=== PATIENT | female | born 1975 | race Caucasian/White ===

== ENCOUNTER 2017-12-22 00:24 | Inpatient (IN) | payer OTHER ==
[~2017-12-22] VITALS: Ht 170.2 cm; Wt 88.5 kg
[2017-12-22] VITALS (11 sets, daily range): BP systolic 108–143; BP diastolic 60–87
[~2017-12-22 00:24] MED LIST: IBUPROFEN800 MG PO; MOTRIN 600 MG600 MG PO; PERCOCET 325 MG1 TA2 PO; PERCOCET 5-3251 EACH PO; PRENATAL1 TA2 PO; TRAMADOL50 MG PO; ZOFRAN4 M1 SL
[2017-12-22 01:16] LABS: ABSOLUTE BASOPHIL COUNT 0.1 /CUMM (0.0-0.2); ABSOLUTE EOSINOPHIL COUNT 0.2 /CUMM (0.0-0.7); ABSOLUTE LYMPH COUNT 4.1 /CUMM (1.2-3.4); ABSOLUTE MONOCYTE COUNT 0.5 /CUMM (0.10-0.60); BASOPHIL % 0.7 % (0.0-2.0); EOSINOPHIL % 2.4 % (0-5); HEMATOCRIT 40.2 % (37-47); MEAN CORPUSCULAR HGB 31.2 PG (27.0-31.0); MEAN CORPUSCULAR HGB CONC 33.9 G/DL (33.0-37.0); MEAN CORPUSCULAR VOLUME 92.1 FL (81.0-99.0); MEAN PLATELET VOLUME 8.2 FL (7.4-10.4); PLATELET COUNT 272 /CUMM (130-400); RED BLOOD CELL CT 4.37 /CUMM (4.20-5.40); WHITE BLOOD CELL COUNT 9.9 /CUMM (4.8-10.8)
--- NOTE | 2017-12-22 01:20 | ED GENERAL ADULT ---
History of Present Illness General Chief Complaint: ETOH/Drug Related Complaint Stated Complaint: DETOX Source: patient Exam Limitations: no limitations Vital Signs & Intake/Output Vital Signs & Intake/Output Vital Signs Date Time Temp Pulse Resp B/P B/P Pulse O2 O2 Flow FiO2 Mean Ox Delivery Rate 12/22 1025 98.5 66 20 124/66 08/06 1024 98.5 66 20 124/66 99 Room Air 08/06 0830 98.6 65 20 122/60 08/06 0830 98.6 65 20 122/60 100 Room Air 08/06 0628 97.0 60 18 110/60 97 Room Air /06 0552 97.0 60 18 110/60 08/06 0351 96.9 90 18 133/76 08/06 0340 96.9 90 18 133/76 97 Room Air / 0128 96.9 73 18 143/86 08/06 0041 96.9 73 18 143/86 98 Room Air Allergies Coded Allergies: shrimp (Severe, ANAPHYLAXIS 12/26/15) amoxicillin (Intermediate, RASH 12/26/15) morphine (Intermediate, RASH 12/26/15) Reconcile Medications Ibuprofen (Motrin 600 MG Tab) 600 MG TAB 1 TAB PO Q6P PRN PAIN Ondansetron (Zofran Odt) 4 MG ODT 1 ODT SL Q6P PRN NAUSEA Oxycodone HCl/Acetaminophen (Percocet 5-325 MG Tablet) 1 EACH TABLET 1-2 TAB PO Q4-6 PRN PAIN Triage Note: PT TO ED REQUESTING ETOH DETOX. STATES "I'VE BEEN DRINKING WAY TOO MUCH RECENTLY" STATES HAS BEEN DRINKING HEAVILY FOR THE LAST YEAR. DRINKS A COUPLE OF MIXED DRINKS DAILY. 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 DENIES DRUGS. DENIES SI/HI. ADMITS TO BEING DEPRESSED. HAS TRIED TO STOP DRINKING ON HER OWN MULTIPLE TIMES, HAS NOT BEEN SUCCESSFUL. "A LOT GOING ON" Triage Nurses Notes Reviewed? yes : No Patient currently breastfeeds: No HPI: Patient request help because she has been very depressed lately has been turning to alcohol as a crutch. Patient denies any suicidal homicidal ideations. Patient states that she is drinking liquid and she normally had in the past. Patient states that she has been able to stop drinking and has not had any tremors or seizures. She denies any hallucinations. (Niki FAIRBANKS,Epifanio Sanchez) Past History Travel History Traveled to [place] past 21 day No Medical History Any Pertinent Medical History? see below for history Neurological: NONE EENT: TUBES IN EARS Cardiovascular: NONE Respiratory: NONE Gastrointestinal: NONE Hepatic: NONE Renal: NONE Musculoskeletal: BROKEN R LEG Psychiatric: anxiety, depression Endocrine: NONE Blood Disorders: NONE Cancer(s): NONE ALTO SINGER/Reproductive: TUBAL LIGATION History of MRSA: No History of VRE: No History of CDIFF: No Surgical History Surgical History: non-contributory Psychosocial History What is your primary language [place] Tobacco Use: Current Daily Use Daily Tobacco Use Amount/Type: => 5 Cigarettes daily ETOH Use: heavy use Illicit Drug Use: denies illicit drug use Family History Hx Contributory? No (Niki FAIRBANKS,Epifanio Sanchez) Review of Systems Review of Systems Constitutional: Reports: no symptoms. EENTM: Reports: no symptoms. Respiratory: Reports: no symptoms. Cardiovascular: Reports: no symptoms. GI: Reports: no symptoms. Genitourinary: Reports: no symptoms. Musculoskeletal: Reports: no symptoms. Skin: Reports: no symptoms. Neurological/Psychological: Reports: see HPI, depressed. Hematologic/Endocrine: Reports: no symptoms. Immunologic/Allergic: Reports: no symptoms. All Other Systems: Reviewed and Negative (Niki FAIRBANKS,Epifanio Sanchez) Physical Exam Physical Exam General Appearance: well developed/nourished, alert, awake, anxious, mild distress Head: atraumatic, normal appearance Eyes: Bilateral: PERRL, EOMI, other (SLUGGISH). Ears, Nose, Throat: normal pharynx, normal ENT inspection, hearing grossly normal Neck: normal inspection, supple, full range of motion Respiratory: normal breath sounds, chest non-tender, no respiratory distress, lungs clear Cardiovascular: regular rate/rhythm, normal peripheral pulses Gastrointestinal: normal bowel sounds, soft, non-tender, no organomegaly Back: normal inspection, normal range of motion Extremities: normal inspection, normal capillary refill, normal range of motion, no edema Neurologic/Psych: no motor/sensory deficits, awake, alert, oriented x 3, normal mood/affect Skin: intact, normal color, warm/dry Core Measures ACS in differential dx? No CVA/TIA Diagnosis: No Sepsis Present: No Sepsis Focused Exam Completed? No (Epifanio Prince MD) Progress Differential Diagnoses I considered the following diagnoses in my evaluation of the patient: [Alcohol intoxication, depression] Plan of Care: Orders Procedure Date/time Status Regular Diet 12/22 B Active Admit to inpatient psych 12/22 141 Active ED CRISIS PSYCH CONSULT 12/23 119 Active CIWA 12/22 30 Active URINE 12/22 30 Complete URINE DRUG SCREEN FOR ER ONLY 12/22 30 Complete LIPASE 12/22 30 Complete ETHANOL 12/22 30 Complete COMPREHENSIVE METABOLIC PANEL 12/22 30 Complete CBC WITHOUT DIFFERENTIAL 12/22 30 Complete Laboratory Tests 12/22/17 0427: Urine Opiates Screen < 100, Methadone Screen < 40, Barbiturate Screen < 60, Ur Phencyclidine Scrn < 6.00, Amphetamines Screen < 100, U Benzodiazepines Scrn < 85, Urine Cocaine Screen < 50, Urine Cannabis Screen < 5.00, Urine Test NEGATIVE 12/22/17 0110: Anion Gap 8, Estimated GFR > 60, BUN/Creatinine Ratio 15.0, Glucose 94, Calcium 8.6, Total Bilirubin 0.2, AST 24, ALT 31, Alkaline Phosphatase 70, Total Protein 7.1, Albumin 4.4, Globulin 2.7, Albumin/Globulin Ratio 1.6, Lipase 168, CBC w Diff NO MAN DIFF REQ, RBC 4.37, MCV 92.1, MCH 31.2 H, MCHC 33.9, RDW 14.0, MPV 8.2, Gran % 50.0, Lymphocytes % 41.4, Monocytes % 5.5, Eosinophils % 2.4, Basophils % 0.7, Absolute Granulocytes 5.0, Absolute Lymphocytes 4.1 H, Absolute Monocytes 0.5, Absolute Eosinophils 0.2, Absolute Basophils 0.1, Serum Alcohol 240.0 Initial ED EKG: none Hand-Off Endorsed To: Amadeo Arellano MD Endorsed Time: 0700 Pending: consult (Niki FAIRBANKS,Epifanio Sanchez) Comments: To be admitted to [facility] for depression (Amadeo Arellano MD) Departure Departure Disposition: STILL A PATIENT Condition: Stable Clinical Impression Primary Impression: Depression Secondary Impressions: Alcohol intoxication Referrals: Patient Has No Primary Care Dr (PCP/Family) Departure Forms: Customer Survey General Discharge Information (Epifanio Prince MD) Psych Admission Note Psychiatric Admission: I have seen and evaluated GIA VYAS I have also reviewed all the pertinent lab results and diagnostic results. GIA VYAS will be admitted to our inpatient Psychiatric unit for treatment and care. (Adan FAIRBANKS,Amadeo) Critical Care Note Critical Care Note Critical Care Time: non-applicable (Niki FAIRBANKS,Epifanio Sanchez)
--- NOTE | 2017-12-22 10:49 | ED PSYCH CRISIS CONSULTATION ---
See Addendum Crisis Consult Basic Assessment Date of Consult: 12/22/17 Responsible Person/Accompanied By: Brought in by her friend Insurance Authorization: Insurance #1: Insurance name: [employer] [place]. Phone number: Policy number: [id number] Group number: [id number] Authorization number: ED Provider: Patient's ED Provider: Niki FAIRBANKS,Epifanio Sanchez Primary Care Physician: Patient's PCP: Patient Has No Primary Care Dr PCP's Phone Number: Current Psychiatrist: None Chief Complaint: ETOH/Drug Related Complaint Patient's Quote: " I think I hit my breaking point." Present Illness: The patient is a 42 year old, female who presented to the ED last evening with worsening symptoms of depression and was intoxicated. She was held overnight and evaluated this AM, when her alcohol level was appropriate for evaluation. She presents alert and oriented, significantly crying with depressed mood. She states that she 'hit her breaking point. She describes having depression for her entire life, however states that she never addressed it. She states 3.5 years ago, she had her second son and her depression became worse. She states that having him "changed her whole life," and it was a significant decision to have him, noting she loves her son very much. She states after having her son, that she had brief treatment in [place], [place] however did not continue, instead has been self medicating with alcohol. She states that he alcohol intake has increased and she believes that she is drinking too much. She states that she is drinking 2-3 glasses of wine, 4-5 times a week, noting sometimes it is more then that. She reports that her depression and anxiety are both a 10 out of 10, 10 being the most severe. She states that she is overwhelmed and does not know what to do, noting that approximately a month ago, she impulsively resigned from her job. She states that despite her financial responsibilities that "she did not care," and quit her job. She has been experiencing anhedonia and does not find jayashree in things. She states that she has not been able to pay her rent or any of her bills. She is unsure if she is feeling helpless and does know "there is a way out," however states that she does not know what that is at this point She has been having difficulty with concentration and at times, with motivation. She denies any current SI, however states "I feel like it yeah, but I would never do it," noting she loves her sons. She states that she has been having diffiuctly with her sleep and is onyl getting about 3-4 hours of sleep a night. She is unsure of what would be helpful at this time, however does want to get better for her kids. TRINA spoke with the patient friend Maki Parra ([phone]), for collateral information. Maki states that she is a Licence Practicing Counselor and has been friends with the patient for many years. Maki states that the patient is a single mom and has been increasingly struggling with everything. Maki states that the patient has 2 children, 3 years old and 16 years old, both of whom reside with her multimedia developer, however both have different fathers, who are involved. Maki notes that the 16 year old is staying with her and the 3 years old is with his paternal grandparents. Maki notes that the children are well cared for and that there is no concern for abuse or neglect. Maki states that the patient has been drinking more and called her last night to ask for help. Maki states that she had suspected that the patient had a drinking problem, however states that the patient is very proud has has never asked for help. Maki states that she has never known the patient to be suicidal or homicidal. Maki states that the patient recently lost her job and is not sure if her rent or bills are paid. Maki thinks that the patient needs help for her drinking and that unless it is rehab, she does not think the patient will follow through. Patient's Address: [address] [place] [address] Other Phone Number: Who Do You Live With? Other (see notes) (2 sons) Family/Informants Interviewed: Friend- Maki Parra [phone]. Allergies - Coded Allergies: shrimp (Severe, ANAPHYLAXIS 12/26/15) amoxicillin (Intermediate, RASH 12/26/15) morphine (Intermediate, RASH 12/26/15) Current Medications - Scheduled PRN Medications Ibuprofen (Motrin 600 MG Tab) 600 MG TAB 1 TAB PO Q6P PRN PAIN #60 TAB Prescribed by Amadeo Arellano MD on 01/26/15 Ondansetron (Zofran Odt) 4 MG ODT 1 ODT SL Q6P PRN NAUSEA #12 ODT Prescribed by Amadeo Arellano MD on 01/26/15 Oxycodone HCl/Acetaminophen (Percocet 5-325 MG Tablet) 1 EACH TABLET 1-2 TAB PO Q4-6 PRN PAIN #24 TAB Prescribed by Tyrel Robles on 12/26/15 Laboratory Results: Laboratory Tests 12/22/17 0427: Urine Opiates Screen < 100, Methadone Screen < 40, Barbiturate Screen < 60, Ur Phencyclidine Scrn < 6.00, Amphetamines Screen < 100, U Benzodiazepines Scrn < 85, Urine Cocaine Screen < 50, Urine Cannabis Screen < 5.00, Urine Test NEGATIVE 12/22/17 0110: Anion Gap 8, Estimated GFR > 60, BUN/Creatinine Ratio 15.0, Glucose 94, Calcium 8.6, Total Bilirubin 0.2, AST 24, ALT 31, Alkaline Phosphatase 70, Total Protein 7.1, Albumin 4.4, Globulin 2.7, Albumin/Globulin Ratio 1.6, Lipase 168, CBC w Diff NO MAN DIFF REQ, RBC 4.37, MCV 92.1, MCH 31.2 H, MCHC 33.9, RDW 14.0, MPV 8.2, Gran % 50.0, Lymphocytes % 41.4, Monocytes % 5.5, Eosinophils % 2.4, Basophils % 0.7, Absolute Granulocytes 5.0, Absolute Lymphocytes 4.1 H, Absolute Monocytes 0.5, Absolute Eosinophils 0.2, Absolute Basophils 0.1, Serum Alcohol 240.0 Past History Past Medical History Neurological: NONE EENT: TUBES IN EARS Cardiovascular: NONE Respiratory: NONE Gastrointestinal: NONE Hepatic: NONE Renal: NONE Musculoskeletal: BROKEN R LEG Psychiatric: anxiety, depression Endocrine: NONE Blood Disorders: NONE Cancer(s): NONE OPTION TRADER/Reproductive: TUBAL LIGATION Past Surgical History Surgical History: non-contributory Psychosocial History Strengths/Capabilities: The patient has supportive friends and two children that she cares for very much. Physical Limitations (Interventions): None noted Psychiatric Treatment History Psych Treatment Psychiatric Treatment Yes Inpatient Treatment No Outpatient Treatment Yes Location of Treatment Brief treatment in [place] Reason for Treatment Post Depression Dates of Treatment 3.5 years ago Response to Treatment She states that she only went briefly and did not continue, as she thought that she no longer needed treatment. Diagnosis by History: None noted Substance Use/Abuse History Drug Use/Abuse Substances Used/Abused Yes Substance Used/Abused Alcohol First Use 19 or 20 years old Last Used Yesterday; 12/21/2017 How much used/taken "2-3 glasses of wine, sometime more." How often "4-5 times a week." For how long Unclear Route of use Oral Substance Abuse Treatment Substance Abuse Treatment Past Substance Abuse [place] No Inpatient Treatment No Outpatient Treatment No Location of Treatment N/A Reason for Treatment N/A Dates of Treatment N/A Response to Treatment N/A Comments: N/A Current Mental Status Mental Status Orientation: Person, Place, Situation Affect: Anxious (Crying), Depressed, Hopeless, Sad Speech: WNL Neuro-vegetative: Anhedonia, Concentration Poor, Sleep Disturbance Appearance Appearance- Dress/Hygiene: The patient was sitting in the chair, in hospital attire with hair disheveled and pulled back. She was crying throughout the evaluation. Behaviors Thought Process: WNL Thought Content: WNL Memory: WNL Insight: WNL SI/HI Risk Assessment Past Suicidal Ideation/Attempts No Current Suicidal Ideation/Att No Past Homicidal Ideation/Att: No Current Homicidal Ideation/Attempts No Degree of Intent: She denies any history of suicide attepmts, however states, "I feel like yeah, but I would never do it, I love my boys." Danger To: Self Gravely Disabled: Poor Impulse Control, Poor Judgment Risk Factors: high anxiety/distress, substance abuse, poor impulse control Lethality Ratin PTSD Checklist PTSD Done? patient declined (Denies trauma or abuse history) ED Management Sitter: Yes Restraints: No DSM5/PS Stressors/Medical Prob Diagnosis' (DSM 5, Stressors, Medical): F32.9 Unspecified Depressive Disorder F10.20 Alcohol Use Disorder Current GAF: 28 Comments: N/A Departure Disposition Psych Medical Clearance Date: 12/22/17 Medically Cleared at: 1015 Time Started: 1015 Time Ended: 1115 Date Disposition Established: 12/22/17 Time Disposition Established: 1114 Plan for Disposition - Modality: CPS vs. bed search Contact: N/A Telephone: N/A Rationale for Disposition: The patient presents with significant symptoms of depression including depressed mood, anhedonia, sleep disturbances, decreased concentratoin and decreased motivation. She has had passive suicidal thoughts, however states that she would not act on them. The case was discussed with Dr. Conroy and she believes that the patient would benefit from an inpatient admission. She will be admitted to [facility]. Type of IP Admission: Voluntary Additional Instructions: N/A Referrals Patient Has No Primary Care Dr (PCP/Family)
--- NOTE | 2017-12-22 15:25 | IP CRISIS DIAG ASSESS PSYCH ---
Diagnostic Assessment Basic Assessment Insurance Authorization: Insurance #1: Insurance name: JOSEFINA Felton C&A Phone number: Policy number: [id number] Group number: Authorization number: Authorization requested through the online [facility] portal and was approved. Authorization # [id number] Client Authorization # [id number] Type of Request INITIAL Primary Care Physician: Patient's PCP: Patient Has No Primary Care Dr PCP's Phone Number: Patient's Quote: " I think I hit my breaking point." Present Illness: The patient is a 42 year old, female who presented to the ED last evening with worsening symptoms of depression and was intoxicated. She was held overnight and evaluated this AM, when her alcohol level was appropriate for evaluation. She presents alert and oriented, significantly crying with depressed mood. She states that she 'hit her breaking point. She describes having depression for her entire life, however states that she never addressed it. She states 3.5 years ago, she had her second son and her depression became worse. She states that having him "changed her whole life," and it was a significant decision to have him, noting she loves her son very much. She states after having her son, that she had brief treatment in [place], [place] however did not continue, instead has been self medicating with alcohol. She states that he alcohol intake has increased and she believes that she is drinking too much. She states that she is drinking 2-3 glasses of wine, 4-5 times a week, noting sometimes it is more then that. She reports that her depression and anxiety are both a 10 out of 10, 10 being the most severe. She states that she is overwhelmed and does not know what to do, noting that approximately a month ago, she impulsively resigned from her job. She states that despite her financial responsibilities that "she did not care," and quit her job. She has been experiencing anhedonia and does not find jayashree in things. She states that she has not been able to pay her rent or any of her bills. She is unsure if she is feeling helpless and does know "there is a way out," however states that she does not know what that is at this point She has been having difficulty with concentration and at times, with motivation. She denies any current SI, however states "I feel like it yeah, but I would never do it," noting she loves her sons. She states that she has been having difficulty with her sleep and is only getting about 3-4 hours of sleep a night. She is unsure of what would be helpful at this time, however does want to get better for her kids. TRINA spoke with the patient friend Maki Parra ([phone]), for collateral information. Maki states that she is a Licence Practicing Counselor and has been friends with the patient for many years. Maki states that the patient is a single mom and has been increasingly struggling with everything. Maki states that the patient has 2 children, 3 years old and 16 years old, both of whom reside with her transit authority police officer, however both have different fathers, who are involved. Maki notes that the 16 year old is staying with her and the 3 years old is with his paternal grandparents. Maki notes that the children are well cared for and that there is no concern for abuse or neglect. Maki states that the patient has been drinking more and called her last night to ask for help. Maki states that she had suspected that the patient had a drinking problem, however states that the patient is very proud has has never asked for help. Maki states that she has never known the patient to be suicidal or homicidal. Maki states that the patient recently lost her job and is not sure if her rent or bills are paid. Maki thinks that the patient needs help for her drinking and that unless it is rehab, she does not think the patient will follow through. Patient's Address: [address] [place] [address] Other Phone Number: Who Do You Live With? Other (see notes) (2 sons) Feel Safe Where You Live? Yes Feel Safe in Your Relationship Yes (Not in a relationship) Marital Status: Do You Have Children? Yes Ages? 16 years old and 2.5 year Primary Language? Prydeinig Family/Informants Interviewed: Friend- Maki Parra [phone]. Allergies - Coded Allergies: shrimp (Severe, ANAPHYLAXIS 12/26/15) amoxicillin (Intermediate, RASH 12/26/15) morphine (Intermediate, RASH 12/26/15) Current Medications - Scheduled PRN Medications Ibuprofen (Motrin 600 MG Tab) 600 MG TAB 1 TAB PO Q6P PRN PAIN #60 TAB Prescribed by Amadeo Arellano MD on 01/26/15 Ondansetron (Zofran Odt) 4 MG ODT 1 ODT SL Q6P PRN NAUSEA #12 ODT Prescribed by Amadeo Arellano MD on 01/26/15 Oxycodone HCl/Acetaminophen (Percocet 5-325 MG Tablet) 1 EACH TABLET 1-2 TAB PO Q4-6 PRN PAIN #24 TAB Prescribed by Tyrel Robles on 12/26/15 Consequences of Psych Med Use: N/A Comment: N/A Lab Results: Laboratory Tests 12/22/17 0427: Urine Opiates Screen < 100, Methadone Screen < 40, Barbiturate Screen < 60, Ur Phencyclidine Scrn < 6.00, Amphetamines Screen < 100, U Benzodiazepines Scrn < 85, Urine Cocaine Screen < 50, Urine Cannabis Screen < 5.00, Urine Test NEGATIVE 12/22/17 0110: Anion Gap 8, Estimated GFR > 60, BUN/Creatinine Ratio 15.0, Glucose 94, Calcium 8.6, Total Bilirubin 0.2, AST 24, ALT 31, Alkaline Phosphatase 70, Total Protein 7.1, Albumin 4.4, Globulin 2.7, Albumin/Globulin Ratio 1.6, Lipase 168, CBC w Diff NO MAN DIFF REQ, RBC 4.37, MCV 92.1, MCH 31.2 H, MCHC 33.9, RDW 14.0, MPV 8.2, Gran % 50.0, Lymphocytes % 41.4, Monocytes % 5.5, Eosinophils % 2.4, Basophils % 0.7, Absolute Granulocytes 5.0, Absolute Lymphocytes 4.1 H, Absolute Monocytes 0.5, Absolute Eosinophils 0.2, Absolute Basophils 0.1, Serum Alcohol 240.0 Toxicology Screen Completed? Yes Results: negative Symptoms of Use: N/A Past History Past Medical History Medical History: None/Denies Past Surgical History Surgical History CS, CHOLY tubal ligation Abuse/Trauma History Trauma History/Current Trauma: Denies Legal History Current Legal Status: none Have you ever been arrested? Yes Number of Arrests: [address] Dates: N/A [employer] Pl[employer] Cutter N/A Psychosocial History Strengths/Capabilities: The patient has supportive friends and two children that she cares for very much. Physical Limitations (Interventions): None noted Psychiatric Treatment History Psych Treatment Psychiatric Treatment Yes Inpatient Treatment No Outpatient Treatment Yes Location of Treatment Brief treatment in [place], [place] Reason for Treatment Post Depression Dates of Treatment 3.5 years ago Response to Treatment She states that she only went briefly and did not continue, as she thought that she no longer needed treatment. Diagnosis by History: None noted Risk Factors: high anxiety/distress, substance abuse, poor impulse control Substance Use/Abuse History Drug Use/Abuse minimum 12mo Hx Substances Used/Abused Yes Substance Used/Abused Alcohol First Use 19 or 20 years old Last Used Yesterday; 12/21/2017 How much used/taken "2-3 glasses of wine, sometime more." How often "4-5 times a week." For how long Unclear Route of use Oral Substance Abuse Treatment Substance Abuse Treatment Past Substance Abuse [place] No Inpatient Treatment No Outpatient Treatment No Location of Treatment N/A Reason for Treatment N/A Dates of Treatment N/A Response to Treatment N/A Comments: N/A Sexual History Sexual Concerns: None noted Education History Highest Level of Education: some college Preferred Learning Style: Unknown Current Mental Status Mental Status Orientation: Person, Place, Situation Affect: Anxious (Crying), Depressed, Hopeless, Sad Speech: WNL Neuro-vegetative: Anhedonia, Concentration Poor, Sleep Disturbance Appearance Appearance- Dress/Hygiene: The patient was sitting in the chair, in hospital attire with hair disheveled and pulled back. She was crying throughout the evaluation. Behaviors Thought Process: WNL Thought Content: WNL Memory: WNL Insight: WNL SI/HI Risk Assessment - Minimum 6mo History- Past Suicidal Ideation/Attempts No Current Suicidal Ideation/Att No Past Homicidal Ideation/Att: No Current Homicidal Ideation/Attempts No Degree of Intent: She denies any history of suicide attepmts, however states, "I feel like yeah, but I would never do it, I love my boys." Danger To: Self Gravely Disabled: Poor Impulse Control, Poor Judgment Risk Factors: high anxiety/distress, substance abuse, poor impulse control Lethality Ratin Needs/Init TX Plan/Goals: Admit to the inpatient unit for safety and symptom stability. Attend group, family and individual sessions. Work with the provider on medication management. Work with the treatment team, to transition back to care in the community. AUDIT-C Questionnaire: AUDIT-C Questionnaire: Response Value ETOH use in the past year 4 or more per week 4 # drinks typical/day 5 or 6 2 6 or > drinks per occasion Weekly 3 Total 9 DSM5/PS Stressors/Medical Prob Diagnosis' (DSM 5, Stressors, Medical): F32.9 Unspecified Depressive Disorder F10.20 Alcohol Use Disorder Stressors: Finances, limited supports Current GAF: 28 Comments: N/A
[2017-12-23 07:41] VITALS: BP 116/66; BP 119/66
[2017-12-23 12:14] VITALS: BP 137/74
--- NOTE | 2017-12-23 13:31 | History & Physical ---
General Information and HPI History of Present Illness: This young female was admitted to the hospital because of increasing depression and alcohol abuse. She denies any previous history of psychiatric treatment or psychiatric hospital admissions in the past. She reports that she has been feeling too depressed and has been drinking too much so a friend of hers who is a therapist brought her to the hospital for evaluation and admission for increased depression Her past history is only significant for 2 sections and cholecystectomy in the past and she denies any other ongoing major medical problems or any psychiatric illness in the past. She is single presently but was in the past and has 2 children who are 4 and 16 years old and are in good health. She denies any specific family history in her parents or siblings but claims her grandparents on both sides have diabetes. 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 about one and half months ago she claims she has lost about 30 pounds of weight by dieting in last 4 months or so Allergies/Medications Allergies: Coded Allergies: shrimp (Severe, ANAPHYLAXIS 12/26/15) amoxicillin (Intermediate, RASH 12/26/15) morphine (Intermediate, RASH 12/26/15) Home Med list Ibuprofen (Motrin 600 MG Tab) 600 MG TAB 1 TAB PO Q6P PRN PAIN Ondansetron (Zofran Odt) 4 MG ODT 1 ODT SL Q6P PRN NAUSEA Oxycodone HCl/Acetaminophen (Percocet 5-325 MG Tablet) 1 EACH TABLET 1-2 TAB PO Q4-6 PRN PAIN Past History Travel History Traveled to [place] past 21 day No Medical History Neurological: migraine EENT: TUBES IN EARS A CHILD NO CURRENT ISSUES Cardiovascular: NONE Respiratory: NONE Gastrointestinal: NONE Hepatic: NONE Renal: NONE Musculoskeletal: BROKEN R LEG OVER 10 YRS AGO/ NO CURRENT ISSUES Psychiatric: alcohol dependence, anxiety, depression Endocrine: NONE Blood Disorders: NONE Cancer(s): NONE RESEARCH GEOLOGIST/Reproductive: TUBAL LIGATION History of MRSA: No History of VRE: No History of CDIFF: No Isolation History: Standard Surgical History Surgical History: non-contributory Past Family/Social History Psychosocial History Where do you live? Home ETOH Use: heavy use Illicit Drug Use: denies illicit drug use Review of Systems Review of Systems Constitutional: Denies: no symptoms. EENTM: Denies: no symptoms. Cardiovascular: Denies: no symptoms. Respiratory: Denies: no symptoms. GI: Denies: no symptoms. Genitourinary: Denies: no symptoms. Musculoskeletal: Denies: no symptoms. Skin: Denies: no symptoms. Neurological/Psychological: Reports: see HPI, depressed, emotional problems. Hematologic/Endocrine: Denies: no symptoms. Exam & Diagnostic Data Last 24 Hrs of Vital Signs/I&O Vital Signs Date Time Temp Pulse Resp B/P B/P Pulse O2 O2 Flow FiO2 Mean Ox Delivery Rate 12/23 1214 56 137/74 12/23 0741 97.1 50 119/66 12/23 0741 97.1 50 116/66 / 2201 97.5 51 109/67 / 1953 97.4 56 108/66 / 1952 97.4 56 108/66 / 1847 54 109/74 12/22 1657 98.1 68 122/87 12/22 1656 98.1 68 122/87 / 1645 72 20 109/58 96 Room Air 12/22 1633 98.4 12/22 1437 98.1 55 18 120/63 98 Intake & Output 12/23 1600 12/23 0800 12/23 0000 Intake Total Output Total Balance Patient 195 lb Weight Physical Exam General Appearance Alert, Oriented X3, Cooperative, No Acute Distress Skin No Rashes, No Breakdown, No Significant Lesion HEENT Atraumatic, PERRLA, EOMI, Mucous Membr. moist/pink Neck Supple, No JVD, No thryomegaly, +2 Carotid Pulse wo Bruit Lymphatic Cervical nl Cardiovascular Regular Rate, Normal S1, Normal S2, No Murmurs, Gallops, Rubs Lungs Clear to Auscultation, Normal Air Movement Abdomen Normal Bowel Sounds, Soft, No Tenderness, No Hepatospenomegaly, No Masses Neurological Exam Findings: Normal Gait, Normal Speech, Strength at 5/5 X4 Ext, Normal Tone, Cranial Nerves 3-12 NL, Reflexes 2+ Cranial Nerves II through XII: wnl Extremities No Clubbing, No Cyanosis, No Edema, No Tenderness/Swelling Assessment/Plan Assessment: This young female was admitted to [facility] for the first time because of increasing depression and alcohol abuse. She does not have any previous history of any long-term psychiatric problems. From medical standpoint she is fairly stable without any acute medical problems at this time. Her physical exam is stable and there is no acute illness. Her labs show normal CBC normal electrolytes and renal functions as well as liver functions and her admission alcohol level was 240 at about 3 times the legal limit. She does not need any specific medical workup or treatment at this time except her usual multivitamin and thiamine and folate for protocol. As Ranked By This Provider Problem List: 1. Depression 2. Alcohol intoxication Miscellaneous Miscellaneous Documentation Attending Case Discussed With: Manav FAIRBANKS,Peterson Primary Care Physician: Patient Has No Primary Care Dr Patient sees these Specialists None Level of Patient Care: JO-ANN Ríos Attending MD Review Statement Attending Statement Attending MD Statement: examined this patient, reviewed EMR data (avail), discussed with nursing Attending Assessment/Plan: This young female was admitted because of increasing depression and alcohol abuse. From medical standpoint she is stable without any acute medical problem and she does not require any specific treatment or workup from medical standpoint except her usual multivitamin and folate and thiamine per protocol.
--- NOTE | 2017-12-23 13:57 | SOCIAL WORKER SOCIAL HX PSYCH ---
Social History Basic Assessment Insurance Authorization: Insurance #1: Insurance name: [facility] Phone number: Policy number: [id number] Group number: Authorization number: Curr Source of Income/Entitlements: "just quit my job" Primary Care Physician: Patient's PCP: Patient Has No Primary Care Dr PCP's Phone Number: Present Problem: The patient is a 42 year old, female who presented to the ED last evening with worsening symptoms of depression and was intoxicated. She was held overnight and evaluated this AM, when her alcohol level was appropriate for evaluation. She presents alert and oriented, significantly crying with depressed mood. She states that she 'hit her breaking point. She describes having depression for her entire life, however states that she never addressed it. She states 3.5 years ago, she had her second son and her depression became worse. She states that having him "changed her whole life," and it was a significant decision to have him, noting she loves her son very much. She states after having her son, that she had brief treatment in [place] however did not continue, instead has been self medicating with alcohol. She states that he alcohol intake has increased and she believes that she is drinking too much. She states that she is drinking 2-3 glasses of wine, 4-5 times a week, noting sometimes it is more then that. She reports that her depression and anxiety are both a 10 out of 10, 10 being the most severe. She states that she is overwhelmed and does not know what to do, noting that approximately a month ago, she impulsively resigned from her job. She states that despite her financial responsibilities that "she did not care," and quit her job. She has been experiencing anhedonia and does not find jayashree in things. She states that she has not been able to pay her rent or any of her bills. She is unsure if she is feeling helpless and does know "there is a way out," however states that she does not know what that is at this point She has been having difficulty with concentration and at times, with motivation. She denies any current SI, however states "I feel like it yeah, but I would never do it," noting she loves her sons. She states that she has been having diffiuctly with her sleep and is onyl getting about 3-4 hours of sleep a night. She is unsure of what would be helpful at this time, however does want to get better for her kids. TRIAN spoke with the patient friend Maki Parra ([phone]), for collateral information. Maki states that she is a Licence Practicing Counselor and has been friends with the patient for many years. Maki states that the patient is a single mom and has been increasingly struggling with everything. Maki states that the patient has 2 children, 3 years old and 16 years old, both of whom reside with her maritime officer, however both have different fathers, who are involved. Maki notes that the 16 year old is staying with her and the 3 years old is with his paternal grandparents. Maki notes that the children are well cared for and that there is no concern for abuse or neglect. Maki states that the patient has been drinking more and called her last night to ask for help. Maki states that she had suspected that the patient had a drinking problem, however states that the patient is very proud has has never asked for help. Maki states that she has never known the patient to be suicidal or homicidal. Maki states that the patient recently lost her job and is not sure if her rent or bills are paid. Maki thinks that the patient needs help for her drinking and that unless it is rehab, she does not think the patient will follow through. Primary Language? Sami Language(s) Spoken At Home: Sami Living Situation Rents or Owns Home? rents Feel Safe Where You Are Living Yes Feel Safe in Relationships? Yes Allergies - Coded Allergies: shrimp (Severe, ANAPHYLAXIS 12/26/15) amoxicillin (Intermediate, RASH 12/26/15) morphine (Intermediate, RASH 12/26/15) Current Medications - Scheduled PRN Medications Ibuprofen (Motrin 600 MG Tab) 600 MG TAB 1 TAB PO Q6P PRN PAIN #60 TAB Prescribed by Amadeo Arellano MD on 01/26/15 Ondansetron (Zofran Odt) 4 MG ODT 1 ODT SL Q6P PRN NAUSEA #12 ODT Prescribed by Amadeo Arellano MD on 01/26/15 Oxycodone HCl/Acetaminophen (Percocet 5-325 MG Tablet) 1 EACH TABLET 1-2 TAB PO Q4-6 PRN PAIN #24 TAB Prescribed by Tyrel Robles on 12/26/15 Past History Past Medical History Neurological: migraine EENT: TUBES IN EARS A CHILD NO CURRENT ISSUES Cardiovascular: NONE Respiratory: NONE Gastrointestinal: NONE Hepatic: NONE Renal: NONE Musculoskeletal: BROKEN R LEG OVER 10 YRS AGO/ NO CURRENT ISSUES Psychiatric: alcohol dependence, anxiety, depression Endocrine: NONE Blood Disorders: NONE Cancer(s): NONE 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 No Mother's Age (Current/): 62 Relationship w/Mother: "non existant" Father's Age (Current/): 65 Relationship w/Father: "I tried to have one with him but it didnt work" Any Sibling(s)? Yes Sibling's Gender(s)/Age(s): male Sibling 1:, male Sibling 2:, male Sibling 3: Relationship w/Sibling(s): "amazing" Relationship w/Friends: "good" Family Psych/Sub Abuse/Add Hx: drug of choice Abuse/Trauma History Trauma History/Current Trauma: Denies History of Trauma/Abuse Treatment? No Abuse/Trauma Treatment: N/A Legal History Legal Guardian/Address/Phone: Self Current Legal Status: "i have court for a traffic ticket but thats all" Pending Court Dates: "traffic court 12/23" Have you ever been arrested Yes Number of Arrests: 1 Hx of Juvenile Legal Charges? No Hx of Adult Legal Charges? No Civil Proceedings: N/A Domestic Relations Court: N/A Child Protective Serv Involvmnt N/A Mold Making Supervisor N/A Psychosocial History Primary Support System: sibling(s) Strengths/Capabilities: The patient has supportive friends and two children that she cares for very much. Weaknesses: Pt is now unemployed and is not sure how to pay bills for her residence Physical Limitations (Interventions): None noted Last Physical: Not sure History of Seizures? No History of Blackouts? No ADL Limitations: None [place]/Social/Peer Relations "good" Meaningful Activities: "I like to spend time with my kids" Childhood Gnosticism: Adventist Current Orthodoxy Affiliation: no zoroastrian stated Is Spirituality Important to You? No Patient's Ethnicity: Argentine, [place] Islander Cultural/Ethnic Issues: N/A Are There Developmental Issues? No Milestones Achieved: fine motor, gross motor Psychiatric Treatment History Psych Treatment Inpatient Treatment No Outpatient Treatment Yes Location of Treatment Brief treatment in [place] Reason for Treatment Post Depression Dates of Treatment 3.5 years ago Response to Treatment She states that she only went briefly and did not continue, as she thought that she no longer needed treatment. Diagnosis: None noted Risk Factors: high anxiety/distress, substance abuse, poor impulse control Substance Use/Abuse History Drug Use/Abuse:Min 12 mo hx Substance Used/Abused Alcohol First Use 19 or 20 years old Last Used Yesterday; 12/21/2017 How much used/taken "2-3 glasses of wine, sometime more." How often "4-5 times a week." For how long Unclear Route of use Oral Have Had Periods of Sobriety? Yes Relapse History? No Explain: "im not a substance user" Have You Ever Attended AA? No Do You Attend AA Currently? No Do You Have a Sponsor? No Other Community Resources Used: N/A Symptoms of Use: N/A Substance Abuse Treatment Substance Abuse Treatment Inpatient Treatment No Outpatient Treatment No Location of Treatment N/A Reason for Treatment N/A Dates of Treatment N/A Response to Treatment N/A Sexual History Sexually Active No Sexual Orientation Heterosexual Sexual Concerns: None noted Education History Highest Level of Education: some college Highest Grade Completed: A few years of college Vocational Year Completed: N/A Number of College Years: 2 College Degree/Major: None Other Degree(s): None Preferred Learning Style: visual, auditory, experiential HX of Learning Difficulties: None reported Barriers to Learning: None reported Special Communication Needs: None reported Employment History Employment Unemployed Not in Labor Force: "Just quit my job for no reason" Vocation/Occupational Hx: "I worked for [employer]" No. of Jobs in Last 5 Years: 2 Attendance: Above average Performance: Exemplary Comments: "i was a great worker" History Have You Been in The ? Yes If Yes, Explain: From [id number] Type of Discharge: Honorable Date of Discharge: 2000 Current Mental Status Mental Status Orientation: Person, Place, Situation Affect: Anxious (Crying), Depressed, Sad Speech: WNL Neuro-vegetative: Anhedonia, Concentration Poor, Sleep Disturbance Appearance Appearance- Dress/Hygiene: The patient was sitting in the chair, in hospital attire, Pt appears to be well groomed and attending to ADL's Behaviors Thought Process: WNL Thought Content: WNL Memory: WNL Insight: WNL SI/HI Risk Assessment Past Suicidal Ideation/Attempts No Current Suicidal Ideation/Att No Past Homicidal Ideation/Att: No Current Homicidal Ideation/Attempts No Degree of Intent: She denies any history of suicide attepmts, however states, "I feel like yeah, but I would never do it, I love my boys." Danger To: Self Gravely Disabled: Poor Impulse Control, Poor Judgment Risk Factors: SA/MH Hospitalization(s), Lack of concern outcome, Poor impulse control, Substance Abuse Lethality Ratin - Conclusion and Recommendations for treatment - and discharge planning
--- NOTE | 2017-12-23 14:11 | CPS PROVIDER INIT ASMT PSYCH ---
Psychiatric Admission Driver Utility Worker's Note Reviewed: Yes Patient Seen and Examined: Yes (Seen with medical student.) Identifying Information: 42 yo SWF mother of 2 who was admitted on 12/22/17 on a voluntary basis, referred by ER. Chief Complaint: "I think I pretty much hit my breaking point." Severe depression/alcohol use. Reaction to Hospitalization: "Scared because I've never done this before." History of Present Illness Onset of Illness: Chronic but worse x ~4 years, since second son was born. Circumstances Leading to Admission: Precipitously quit job on 12/05/17. Drinking heavier x 3-4 months, ~3-4 glasses wine/night, 4+ nights/week. Problem(s) Justifying Need for Admission: Severe depression. Drinking. Other HPI: "I'm definitely not me." Second was not planned. Reports lots of crying/feeling sad. 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 "Was just overwhelmed and stressed." Lost 25#/4 months intentionally by exercising and doing [place], which she teaches. Sleep: awful x 5-6 months. Coffee use down to 2 cups in AM. Appetite: so-so. Intentional weight loss. 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 Energy: decreased for a couple of months. Denies gambling, promiscuity, hypergraphia, hyper-religiosity. Reports a small amount of debt. Gets mood swings but not natural highs. Case and treatment plan discussed in team meeting. Staff reports that the patient is denying SI. Had fair sleep. Looks depressed. CIWA unremarkable. VSS. Anxious Past Psychiatric History Past Diagnosis(es)- if any: N/A. Past Precipitating Factors- if any: N/A. - Include inpatient and outpatient treatment Treatment History: [facility] for counseling in [place] for 2 visits, 2.5 years ago. No prior inpatient tx. History of Suicide Attempts or Gestures No attempts or self-harm. Substance Abuse History: Tobacco: 0.5 ppd. Alcohol as above. Denies DTs or seizures. No drug use. Allergies: Coded Allergies: shrimp (Severe, ANAPHYLAXIS 12/26/15) amoxicillin (Intermediate, RASH 12/26/15) morphine (Intermediate, RASH 12/26/15) Home Med List: None. - Include any medical condition(s) that may - impact the patient's recovery/remission Past Medical History: 2 c-sections. Cholecystectomy. BTL. Right leg surgery after injury. 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 Substance Use: Father alcohol. PGF alcohol. Mat uncle from cocaine and methadone OD when the patient was 26 yo. Suicides: Denied. Social History Living Situation: Lives with 2 sons, ages 16 and 3, different fathers. Significant Relationships (family/friends): Has two sons, ages 16 and 3, as above. Parents when patient was 1.5 yo. Mother remarried, lives in [place], [facility]. contact. Father lives in [place], no contact x 1 year, ("mean drunk"). Has 3 maternal half-brothers. Education: Had 2 years of college. Wants to finish nursing. 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 No income now. Legal: No arrests. Healthly Behaviors Screening Tobacco Screening Tobacco Use from ED Docu: Current Daily Use Daily Tobacco Use Amount/Type: => 5 Cigarettes daily - If tobacco counseling indicated - the following topics are required. - #1 Recognizing dangerous situations. - #2 Coping Skills. - #3 Basic information about quitting. Status of Tobacco Cessation Counseling: #1, #2 AND #3 Completed Cessation Med Status Nicotine Patch Ordered Alcohol Screening - ETOH screen POS if BAL >=80 or Audit-C>= M4/F3 Audit-C Score from Diag Assess: 9 Blood Alcohol Level: Laboratory Tests 12/22 0110 Toxicology Serum Alcohol (<10 MG/DL) 240.0 Alcohol Use Screening Results: Pos per Audit C &/or BAL - If ETOH counseling indicated - the following topics are required. - #1 Express concern about the patient's - drinking at unhealthy levels, include informing - of national norms for moderate drinking: - men <= 14 drinks/week, max 4 drinks/occasion - women <= 7 drinks/week, max 3 drinks/occasion - #2 Providing feedback, including linking alcohol to - negative physical effects (liver injury, hypertension) - negative emotional effects (relationship problems and - depression) - negative occupational consequences (reduced work - performance) - #3 Advising the patient to abstain from alcohol or - to drink below national norms for moderate drinking - (as listed above). Status of ETOH Use Counseling: #1, #2 AND #3 Completed. Metabolic Screening - Screen if on a Neuroleptic Medication - Metabolic screening should include: - Blood Pressure, BMI, Glucose or Hgb A1c, & a - Lipid profile from within the past 365 days. Metabolic Screening ([x]) Not Applicable, patient not on a neuroleptic. OR () Patient on a neuroleptic(s) . Enter below results for Hemoglobin A1C, and lipid panel if obtained during the last 365 days. BMI: 30.500 Blood Pressure: 130/59 Laboratory Results From [facility] (If applicable): Exam and Plan Mental Status Examination Ambulation Status: Gait unremarkable. Appearance: WF in NAD. Attitude towards examiner: Calm, polite and cooperative. Psychomotor activity: There is no psychomotor agitation/retardation. Behavior: Unremarkable. Quality of speech: Normal in volume, rate and tone. Affect: Calm and blunted. Mood: Sad 10/10. Anxiety 10/10 since getting here. Finds it overwhelming to be here. Denies feeling hopeless or worthless. Does feels helpless and guilty. Suicidal Ideation: Denies active and passive SI. Homicidal Ideation: Denies HI. Hallucinations: Denies AH and VH. Paranoid/Delusional Material: Denies PI and magical ross. Difficulties with thought organization: None. Insight: Fair. Judgment: Was poor but improved. Orientation: Ox3. Cognition: Grossly intact. Memory Function: Grossly intact. Estimate of intellectual functioning: Average. Assets/Strengths Patient Identified Assets/Strengths: "Here and want to make things better." Impression/Plan Impression and Plan: Patient is here in the context of severe depression, alcohol use and recently having quit job. Has been feeling overwhelmed lately. - Include all active medical diagnosis that require tx DSM 5 Diagnosis(es): Unspecified depression. Alcohol use disorder. - Initial Tx Plan for Active Psych & Medical Conditions Treatment Plan: The patient will be monitored on the unit for safety, alcohol withdrawal and mood disorder. Additional information is needed from collaterals. Major risks/benefits of Lexapro were discussed with the patient and she agreed to this medication. Patient was advised to avoid drugs and alcohol while on this medication. Anticipate likely discharge on 12/25/17 to [facility] and home. - Factors that would help patient function - in a less restrictive setting. Factors: Improved mood. Not suicidal. Not in alcohol withdrawal.
[2017-12-23 16:30] VITALS: BP 130/59
--- NOTE | 2017-12-23 16:59 | SOCIAL WORKER PROG NOTE PSYCH ---
Social Work Progress Note Progress Note This magnetic tape typewriter operator met with patient. 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 Patient stated that she has been drinking alcohol 4-5 times per week, at 3-4 glasses each time. Patient denied any other substance use and denied any history of mental health/substance use treatment. Patient stated that she has one arrest due to driving and talking on a cell phone. She denied any DCF involvement. She denied SI/HI/hallucinations. She identified stressors of being a single parent as well as her alcohol use. Patient stated that she has two children; the 16 year old is staying with her friend and the 3 years old is staying his paternal grandparents. Patient was agreeable to a family meeting, however, did not want to identify anyone today for the family meeting. She stated that she would think about it and possibly contact individuals. She will inform this magnetic tape typewriter operator of whom she would like to invite. Patient is agreeable to [facility]. She stated that she has also attended AA in the past and is interested in returning. Patient requested that we call the [place] [address] as she remembered that she had court today for the driving arrest. Becky at the [place] [facility]'s office ([phone]) informed that she had been given a continuance with the next court date on 01/13/18. Becky stated that a letter or other documentation did not need to be submitted today and instructed the patient to bring discharge paperwork with her on 01/13/18.
[2017-12-23 19:31] VITALS: BP 117/69
[2017-12-23 20:48] VITALS: BP 117/69
[2017-12-24 08:11] VITALS: BP 118/70
[2017-12-24 08:28] VITALS: BP 118/70
--- NOTE | 2017-12-24 14:11 | CP SOUTH PROGRESS NOTE PSYCH ---
Psych (Inpt) Progress Note Progress Note Include the following elements, when applicable: Involvement in the active treatment of the patient with behavioral observations of the patient and the patient's response to the treatment. Review of the ongoing treatment process in the context of the treatment plan. Indication of how multi-disciplinary staff members are carrying out the treatment plan. Plans for future interventions and recommendations for revision of the treatment plan. Liaison with other physicians/providers. Progress Note: Case and treatment plan discussed in team meeting. Staff reports that the patient is denying suicidal ideation. Patient was isolative last evening. On the periphery. CIWA scores have been unremarkable. Patient seen at 10:52 AM. She was in group prior to meeting with me in office. Reports doing okay. Misses her children. Appears awake and alert. Affect is calm and blunted. Patient reports that her trigger on Friday was that she told her son she was going to the grocery store but went to a bar instead. She is puzzled by the fact that she quit her job impulsively and she feels ashamed and embarrassed about it. Reports mood as "I don't know. It's kind of mixed, upset /frustrated with myself." She is apprehensive about discharge tomorrow and seeing her older son because she will be embarassed. Rates sad mood about 10/10 and anxiety about 8/10. Denies hopeless, helpless or worthless. Does feel guilty. Denies active and passive suicidal ideation. Denies homicidal ideation. Denies auditory and visual hallucinations and paranoid ideation. Reports she slept maybe 2 hours. She tried to sleep. Did not take trazodone. She plans to try trazodone tonight. States appetite is not so much. Energy is a little bit better than yesterday. Tolerating Lexapro well thus far without complaint. Patient's asking for medication to help with alcohol cravings. Major risks and benefits of Campral were discussed with the patient and she agrees to this medication. She was advised to avoid drugs, alcohol and while on this medication. IMPRESSION: Slow progress. Continue present treatment plan. Plan is for family meeting this afternoon. Anticipate likely discharge tomorrow to IOP intake and return home.
[2017-12-24 18:11] VITALS: BP 131/64
--- NOTE | 2017-12-24 18:39 | SOCIAL WORKER PROG NOTE PSYCH ---
Social Work Progress Note Progress Note This creative writer met with patient. She discussed feeling anxious/nervous about discharge. She was agreeable to an IOP intake and accepted the 1:15pm intake time for tomorrow. She denied SI/HI/AH/VH. She stated that she has obtained food stamps and is interested in case management through [facility]. We called Renay at [facility] erik ([phone]) and left a vm. (Renay returned the call later in the day stating that the patient would need to complete the IOP before submitting a referral to [facility] case management. Patient was informed of this.) We discussed AA, to which patient was agreeable to attending and will ask the nursing staff for a meeting book. Patient is agreeable to a family meeting with her friend, Maki, whom we called and was agreeable to a 4:30pm meeting. Patient's brother, cousin and two friends (including Maki) presented to [facility] for the family meeting. This creative writer spoke with patient separately, who was agreeable to all of these individuals attending the meeting. DOROTHY was signed. 4:30pm Dr. Em and this creative writer met with the patient and family/friends for a family meeting (friends Jessica Parra and Maki Parra; brother, Paulino Lawson; cousin, Francyselena Whitlock). They discussed concerns regarding patient and Francy commented on the recent increase in alcohol use, an amount patient appears to minimize. Patient's family and friends inquired about inpatient/rehab. Patient appeared resistant to this stating multiple reasons (including not wanting to be away from her children and looking for a job). They were informed that referrals could be made, if the patient is interested, and if there is a wait, patient could attend [facility] during this wait. Patient agreed to consider this and discuss further tomorrow or with [facility]. Dr. Em addressed medication questions and concerns. We also discussed IOP and shared that the patient has an intake scheduled for tomorrow at 1:15pm with [facility]. Patient and her family/friends were informed of the response regarding case managment at [facility]. Patient's family did not express concerns regarding SI/HI. Patient denied any access to weapons/guns, to which her family and friends agreed.
[2017-12-24 19:32] VITALS: BP 127/70
[2017-12-25 08:05] VITALS: BP 128/59
[2017-12-25 08:07] VITALS: BP 128/59
[2017-12-25] MEDS ORDERED: ONE DAILY MULT1 EAC2 PO (10:50)
[2017-12-25] MEDS ORDERED: NICOTINE PATCH1 EAC1 TOP (10:50)
[2017-12-25] MEDS ORDERED: GABAPENTIN300 M2 PO (10:50)
[2017-12-25] MEDS ORDERED: ACAMPROSATE CA333 M1 PO (10:50)
[2017-12-25] MEDS ORDERED: LEXAPRO10 M1 PO (10:50)
[2017-12-25] MEDS ORDERED: TRAZODONE HCL50 M1 PO (10:50)
--- NOTE | 2017-12-25 10:54 | Patient Discharge Instructions ---
Psych Discharge Inst General Discharge Information Reason for Admission: Severe depression and alcohol use. Psy Discharge Primary Diag+ Unspecified depression Psy Discharge Secondary Diag+ Alcohol use disorder Summary Tests/Major Procedures Lab ALT 31 U/L 12/22/17 0110 AST 24 U/L 12/22/17 0110 BUN 9 mg/dL 12/22/17 0110 Calcium 8.6 mg/dL 12/22/17 0110 Carbon Dioxide 25 mmol/L 12/22/17 0110 Chloride 110 mmol/L H 12/22/17 0110 Creatinine 0.6 mg/dL 12/22/17 0110 Estimated GFR > 60 ml/min 12/22/17 0110 Glucose 94 mg/dL 12/22/17 0110 Lipase 168 U/L 12/22/17 0110 Potassium 4.2 mmol/L 12/22/17 0110 Sodium 144 mmol/L 12/22/17 0110 TSH &T3 &Free T4 Intrp 2.100 uIU/mL 12/22/17 0110 Absolute Lymphocytes 4.1 /CUMM H 12/22/17 0110 Hct 40.2 % 12/22/17 0110 Hgb 13.6 G/DL 12/22/17 0110 MCH 31.2 PG H 12/22/17 0110 Plt Count 272 /CUMM 12/22/17 0110 WBC 9.9 /CUMM 12/22/17 0110 Serum Alcohol 240.0 MG/DL 12/22/17 0110 Urine Test NEGATIVE 12/22/17 0427 Studies Pending at DC: None. Patient Instructions Contact Information Your Psychiatrist on [facility] was Peterson Em MD * If you are experiencing an emergency related to this hospitalization, please call [phone] to contact the treating psychiatrist or the psychiatrist-on- call. * To Request a copy of your medical records, please contact the Medical Records Department at [phone]. * To request results of studies pending at the time of discharge, please call [phone]. * Continue your Medications until directed to stop by your Healthcare provider. General Medication Information Please continue to take your new medications and your continued home medications , unless otherwise indicated on your discharge medication list, or unless directed by your MD or PILLOW AGENT to stop them. Special Instructions Diet Regular Activity Normal Other Inst/Recommendations Stay away from alcohol! Pursue inpatient rehab. - Tobacco Use Treatment Offered Post DC Medications Offered: Script Given-See Med List Post DC Tobacco Treatment Plan: [facility] Tobacco Tx Pgm Program Appt Date: 01/07/18 Program Appt Time: 1600 - EtOH/Drug Use D/O Treatment Offered Post DC Medications Offered: Script Given-See Med List (Campral) Post DC EtOH/SubAbuse TX Plan: [facility]z SubAbuse/Dual IOP Program Appt Date: 12/25/17 Program Appt Time: 1315 Metabolic Screening ([x]) Not Applicable, patient not on a neuroleptic. OR () Patient on a neuroleptic(s) . Enter below results for Hemoglobin A1C, and lipid panel if obtained during the last 365 days. BMI: 30.500 Blood Pressure: 128/59 Laboratory Results From [facility] EHR (If applicable): Advance Directives Does the Patient have Medical Advance Directives No/Refused further info Does Pt have Psychiatric Advance Directives? No/Refused further info Does Patient have a Designated Surrogate Decision Maker: No Information About Psychiatric Advance Directives Provided? Refused Discharge Plan Post Hospital Treatment Plan: Returning to home and family.
--- NOTE | 2017-12-25 16:15 | CP SOUTH PROGRESS NOTE PSYCH ---
Psych (Inpt) Progress Note Progress Note Include the following elements, when applicable: Involvement in the active treatment of the patient with behavioral observations of the patient and the patient's response to the treatment. Review of the ongoing treatment process in the context of the treatment plan. Indication of how multi-disciplinary staff members are carrying out the treatment plan. Plans for future interventions and recommendations for revision of the treatment plan. Liaison with other physicians/providers. Progress Note: Case and treatment plan discussed in team meeting. Staff reports that the patient is denying suicidal ideation. Has an IOP intake at 1:15 PM. Had a good family meeting yesterday. Patient is now interested in a 30 day inpatient rehab. 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 Patient seen at 10:39 AM. Feels okay, a little nervous about going home. She believes that a 2-4 week inpatient rehab is the right choice. Affect is blunted to mildly anxious. Mood is anxious like at a 9/10. Rates sad mood like a 4/10. Denies feeling hopeless, helpless or worthless. Does feel guilty. Denies active and passive suicidal ideation. Denies homicidal ideation. Denies auditory and visual hallucinations and paranoid ideation. Reports she slept wonderfully with trazodone, the best in months. Energy is so-so. Tolerating medications well except for report of mild dry mouth. Feels ready and safe for discharge. IMPRESSION: Condition improved. Okay for discharge today to IOP intake then to home.
--- NOTE | 2017-12-25 16:21 | DISCHARGE SUMMARY REPORT-PSYCH ---
Visit Information Visit Dates/Diagnosis' Admission Date: 12/22/17 Discharge Date: 12/25/17 Reason for Admission: Severe depression and alcohol use. Psy Discharge Primary Diag: Unspecified depression Psy Discharge Secondary Diag: Alcohol use disorder Hospital Course Significant Lab Findings: Lab ALT 31 U/L 12/22/17 0110 AST 24 U/L 12/22/17 0110 BUN 9 mg/dL 12/22/17 0110 Calcium 8.6 mg/dL 12/22/17 0110 Carbon Dioxide 25 mmol/L 12/22/17 0110 Chloride 110 mmol/L H 12/22/17 0110 Creatinine 0.6 mg/dL 12/22/17 0110 Estimated GFR > 60 ml/min 12/22/17 0110 Glucose 94 mg/dL 12/22/17 0110 Lipase 168 U/L 12/22/17 0110 Potassium 4.2 mmol/L 12/22/17 0110 Sodium 144 mmol/L 12/22/17 0110 TSH &T3 &Free T4 Intrp 2.100 uIU/mL 12/22/17 0110 Absolute Lymphocytes 4.1 /CUMM H 12/22/17 0110 Hct 40.2 % 12/22/17 0110 Hgb 13.6 G/DL 12/22/17 0110 MCH 31.2 PG H 12/22/17 0110 Plt Count 272 /CUMM 12/22/17 0110 WBC 9.9 /CUMM 12/22/17 0110 Serum Alcohol 240.0 MG/DL 12/22/17 0110 Urine Test NEGATIVE 12/22/17 0427 Course Complications: None. Consultations: The patient was seen by Dr. Pascual Moon for admission history and physical. Per his note of 12/23/17: "Assessment: This young female was admitted to [facility] for the first time because of increasing depression and alcohol abuse. She does not have any previous history of any long-term psychiatric problems. From medical standpoint she is fairly stable without any acute medical problems at this time. Her physical exam is stable and there is no acute illness. Her labs show normal CBC normal electrolytes and renal functions as well as liver functions and her admission alcohol level was 240 at about 3 times the legal limit. She does not need any specific medical workup or treatment at this time except her usual multivitamin and thiamine and folate for protocol." Allergies: Coded Allergies: shrimp (Severe, ANAPHYLAXIS 12/26/15) amoxicillin (Intermediate, RASH 12/26/15) morphine (Intermediate, RASH 12/26/15) Hospital Course/TX Response: The patient was monitored on the unit for safety, alcohol withdrawal and mood disorder. She participated in multimodal treatments on the unit. The patient was treated with thiamine, folate and multivitamin. Detox was uneventful. The patient was started on Lexapro for depression. She was started on Campral for alcohol cravings. She found prn gabapentin and prn trazodone helpful. There has been no suicidal ideation. Mood and affect have improved. Progress note from date of discharge, 12/25/17: "Case and treatment plan discussed in team meeting. Staff reports that the patient is denying suicidal ideation. Has an IOP intake at 1:15 PM. Had a good family meeting yesterday. Patient is now interested in a 30 day inpatient rehab. 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 Patient seen at 10:39 AM. Feels okay, a little nervous about going home. She believes that a 2-4 week inpatient rehab is the right choice. Affect is blunted to mildly anxious. Mood is anxious like at a 9/10. Rates sad mood like a 4/10. Denies feeling hopeless, helpless or worthless. Does feel guilty. Denies active and passive suicidal ideation. Denies homicidal ideation. Denies auditory and visual hallucinations and paranoid ideation. Reports she slept wonderfully with trazodone, the best in months. Energy is so-so. Tolerating medications well except for report of mild dry mouth. Feels ready and safe for discharge. IMPRESSION: Condition improved. Okay for discharge today to IOP intake then to home." Discharge HBIPS - Tobacco Use Treatment Offered Post DC Medications Offered: Script Given-See Med List Post DC Tobacco Treatment Plan: [facility] Tobacco Tx Pgm Program Appt Date: 01/07/18 Program Appt Time: 1600 - EtOH/Drug Use D/O Treatment Offered Post DC Medications Offered: Script Given-See Med List (Campral) Post DC EtOH/SubAbuse TX Plan: Dez SubAbuse/Dual IOP Program Appt Date: 12/25/17 Program Appt Time: 1315 Metabolic Screening - Screen if on a Neuroleptic Medication - Metabolic screening should include: - Blood Pressure, BMI, Glucose or Hgb A1c, & a - Lipid profile from within the past 365 days. Metabolic Screening ([x]) Not Applicable, patient not on a neuroleptic. OR () Patient on a neuroleptic(s) . Enter below results for Hemoglobin A1C, and lipid panel if obtained during the last 365 days. BMI: 30.500 Blood Pressure: 128/59 Laboratory Results From [facility] EHR (If applicable): Discharge Instructions General Discharge Information Multiple Neuroleptics: ([x]) Not Applicable OR Document below three failed attempts at monotherapy, or a plan to taper to monotherapy, or augmentation of Clozapine. () Discharge Diet Regular Discharge Activity Normal DC Disposition: Home and IOP. Patient will pursue inpatient rehab. Referrals Ordered Referrals INTENSIVE OUTPT PSY-SUBSTANCE 12/25/17 [address], [place] [id number] [facility] [address], [place] [phone] IOP intake: , 12/25/17, at 1:15pm [facility] 01/07/18 [address] [place] [address] [facility] [address], [place] [phone] Group meets every other Friday at 4pm Next group: 01/07/18, at 4pm Provider Referral For Groups: [Resources] Andrew Ortiz ([place]): [phone] Ananya Ware [place], [place]): [phone] [facility]): [phone] Prescriptions Stop taking the following medications: Ibuprofen (Motrin 600 MG Tab) 600 MG TAB ORAL EVERY SIX HOURS NEEDED as needed for PAIN Qty = 60 Ondansetron (Zofran Odt) 4 MG ODT SUBLINGUAL EVERY SIX HOURS NEEDED as needed for NAUSEA Qty = 12 Oxycodone HCl/Acetaminophen (Percocet 5-325 MG Tablet) 1 EACH TABLET ORAL EVERY 4-6 HOURS as needed for PAIN Qty = 24 Start taking the following new medications: Nicotine (Nicotine Patch) 7 MG/24 HOUR PATCH.TD24 1 Patch On the skin DAILY Qty = 14 No Refills Comments: Last Taken:12/25/17 Time:08 Gabapentin (Gabapentin) 300 MG CAPSULE 1 Capsule ORAL EVERY SIX HOURS NEEDED as needed for ANXIETY/AGITATION/ INSOMNIA Qty = 42 No Refills Comments: Last Taken:12/25/17 Time:08 Escitalopram Oxalate (Lexapro) 10 MG TABLET 1 Tablet ORAL DAILY @8 AM Qty = 14 No Refills Comments: Last Taken:12/25/17 Time:08 Trazodone HCl (Trazodone HCl) 50 MG TABLET 1 Tablet ORAL AT BEDTIME as needed for SLEEP Qty = 14 No Refills Comments: Last Taken:12/24/17 Time:2214 Acamprosate Calcium (Acamprosate Calcium) 333 MG TABLET.DR 2 Tablet ORAL THREE TIMES DAILY Qty = 84 No Refills Instructions: Campral 666 mg po t.i.d. Comments: Last Taken:12/25/17 Time:08 Multivitamin (One Daily Multivitamin) 1 EACH TABLET 1 Tablet ORAL DAILY Qty = 14 No Refills Comments: Last Taken:12/25/17 Time:0811 Other Inst/Recommendations Stay away from alcohol! Pursue inpatient rehab. Studies Pending at Discharge None. Copies To: Intensive Outpt Psy-Substance
--- NOTE | 2017-12-25 18:33 | SOCIAL WORKER PROG NOTE PSYCH ---
Social Work Progress Note Progress Note This ghost writer met with patient. She discussed feeling "a little apprehensive" about discharging home and what she will say to her family. She stated that she is still eager to discharge and feels safe doing so. Patient denied SI/HI/AH/VH and identified a safety plan in which she would "call my family or friends or go to the ER." She was also agreeable to utilizing the crisis numbers and warm lines. They were provided to her upon discharge today. Patient expressed interest in rehab referrals, however, stated that she would like for referrals to be made and that she would go to the IOP intake today. She stated that she would follow up with them by phone. Patient signed DOROTHY's for [facility], [facility] and [facility]. This ghost writer spoke with Edel at [facility] to confirmed that they accept her insurance due to being [place] of [place]. Edel offered that patient to complete a phone screening today. Patient refused and stated that she would call from home. This ghost writer informed [facility] ([place]) of patient's interest in rehab and referrals. They were also informed that a referral may be submitted to [facility] for case management services after completing IOP. Faxed Referral(s) Referred To: [facility] Transition of Care Documents sent: Health Summary Faxed to: [facility] Fax #: [phone] Faxed by: Shari Carreon LCSW Date faxed: 12/25/17 Time Faxed: [phone]
== END 2017-12-25 13:15 | DRG 754 ==
LOC: ERH 00:24 → CP SOUTH 14:59 → ERHI 14:59 → CP SOUTH 16:44
PROVIDERS: Physician Assistant
DX: F32.9 Major depressive disorder, single episode, unspecified (principal); Z72.89 Other problems related to lifestyle
CPT/HCPCS: 80307; 81025; 90714; G0480; J0515; J1630; J3101; J3490